=== PATIENT | female | born 1975 | race Two or more races ===

== ENCOUNTER 2018-01-09 02:28 | Emergency (ER) | payer SELFPAY, OTHER ==
[2018-01-09] MEDS: ACETAMINOPHEN/CODEINE 300/30MG TABLET. PO (03:36)
== END 2018-01-09 04:19 | disposition home or self-care (01) ==
LOC: ER 02:28
DX: S82.402A Unspecified fracture of shaft of left fibula, initial encounter for closed fracture (principal); X50.1XXA Overexertion from prolonged static or awkward postures, initial encounter; Y93.89 Activity, other specified; Y92.89 Other specified places as the place of occurrence of the external cause; Y99.8 Other external cause status; Z98.51 Tubal ligation status
CPT/HCPCS: 29515; 73610; 99284

== ENCOUNTER 2018-01-19 08:42 | Day surgery (SDC) | payer OTHER ==
[~2018-01-19 08:42] MED LIST: LIDOCAINE 1% PF 2 ML VIAL. ID; MORPHINE SULFATE 2 MG/ML DISP.SYRIN. IV; ONDANSETRON PF 4 MG/2 ML VIAL. IV; ceFAZolin 2GM PREMIX 2 GM/50 ML BAG IV; fentaNYL PF VIAL 100 MCG/2 ML VIAL IV
[2018-01-19] MEDS: IV RINGERS,LACTATED 1000ML 1,000 ML IV (09:37)
[2018-01-19] MEDS ORDERED: PROPOFOL 20 ML IV (11:03)
[2018-01-19] MEDS ORDERED: fentaNYL PF VIAL 250 MCG/5 ML VIAL (11:03)
[2018-01-19] MEDS ORDERED: MIDAZOLAM HCL/PF 2 MG/2 ML VIAL. (11:03)
[2018-01-19] MEDS ORDERED: LIDOCAINE 2% PF Vial for OR 5 ML VIAL. (11:03)
[2018-01-19] MEDS ORDERED: ONDANSETRON PF 4 MG/2 ML VIAL. (12:55)
[2018-01-19] MEDS ORDERED: DEXAMETHASONE SOD PHOS 20 MG/5 ML VIAL. (12:55)
[2018-01-19] MEDS: BUPIVACAINE-EPI 0.25%-1:200000 50 ML VIAL. (13:16)
[2018-01-19] MEDS ORDERED: SUCCINYLCHOLINE 200 MG/10 ML VIAL. (13:20)
[2018-01-19] MEDS ORDERED: ROCURONIUM 100 MG/10 ML VIAL. (13:21)
[2018-01-19] MEDS ORDERED: oxyCODONE/APAP 5/325 1 TAB TABLET (15:15)
[2018-01-19] MEDS: PROCHLORPERAZINE 10 MG/2 ML VIAL. IV (15:20)
[2018-01-19] MEDS: fentaNYL PF VIAL 100 MCG/2 ML VIAL IV ×2 (15:20→15:53)
[2018-01-19] MEDS: oxyCODONE/APAP 5/325 1 TAB TABLET PO (15:53)
== END 2018-01-19 17:36 | disposition home or self-care (01) ==
LOC: SURG 08:42
DX: S82.842A Displaced bimalleolar fracture of left lower leg, initial encounter for closed fracture (principal); S93.432A Sprain of tibiofibular ligament of left ankle, initial encounter; X50.1XXA Overexertion from prolonged static or awkward postures, initial encounter; Y93.89 Activity, other specified; Y92.89 Other specified places as the place of occurrence of the external cause; Y99.8 Other external cause status; Z79.899 Other long term (current) drug therapy; Z98.51 Tubal ligation status; Z90.710 Acquired absence of both cervix and uterus; Z90.721 Acquired absence of ovaries, unilateral
CPT/HCPCS: 27814; 36415; 82306; A7015; C1713; J0330; J0690; J0780; J1100; J2001; J2250; J2405; J2704; J3010